=== PATIENT | male | born 1995 | race Caucasian/White ===

== ENCOUNTER 2020-04-06 15:13 | Emergency (ER) | payer OTHER, SELFPAY ==
--- NOTE | 2020-04-06 16:12 | ED.EYEPROB ---
HPI - Eye Problem General Chief complaint: Eye Problems Stated complaint: foreign body in left eye Time Seen by Provider: 04/06/20 16:12 Source: patient Mode of arrival: ambulatory Limitations: no limitations History of Present Illness HPI Narrative: Freedom Johnson is a 25 yo male with depression, GERD, comes to express care with complaints of left eye pain possibly related to foreign object from work Related Data Allergies Allergy/AdvReac Type Severity Reaction Status Date / Time No Known Allergies Allergy Unknown Verified 04/06/20 16:00 Review of Systems Review of Systems: Narrative: CONSTITUTIONAL: Denies fever, chills, sweats. EYES: Denies visual changes, has redness, has pain .discharge. ENT: Denies rhinorrhea, congestion, sore throat, otalgia. CARDIOVASCULAR: Denies chest pain, palpitations, edema. RESPIRATORY: Denies dyspnea, wheezing, cough GASTROINTESTINAL: Denies abdominal pain, nausea, vomiting, diarrhea. GENITOURINARY: Denies dysuria, hematuria, abnormal discharge SKIN: Denies rash or itching. NEUROLOGIC: Denies numbness, or focal weakness. PSYCHIATRIC: Denies anxiety or depression. [facility] Family History Family History Father Family history of cardiovascular disease Other Schizophrenia Social History Social History Smoking status: Former smoker Alcohol intake: current Gender identity (if verbalized by the patient): Male Comments At time of signature, I agree with nursing past medical, surgical, social and family history. There is no relevant family history pertinent to the presenting complaint. Exam Narrative: Exam Narrative: GENERAL: This is a well-nourished, well-developed patient, in mild distress. HEAD: normocephalic, atraumatic. EYES: Sclera injected on left vision is grossly in intact (tested 20/15) EARS: External ears normal, . Hearing grossly intact. NOSE: External nose normal without nasal discharge, nares without redness, no rhinorrhea. THROAT: Mucous membranes moist, NECK: Neck supple, CARDIOVASCULAR: Regular rate and rhythm without murmurs, gallops, or rubs. RESPIRATORY: Clear to auscultation. Breath sounds equal bilaterally. No wheezes, rales, or rhonchi. GASTROINTESTINAL: Abdomen soft, non-tender, SKIN: warm, intact with no suspicious lesions or rash, good texture and turgor. NEURO: awake, alert, and oriented to person, place and time. There were no obvious focal neurologic abnormalities. Steady gait EXTREMITIES: Normal range of motion. BACK: Nontender without deformity Procedures FB Removal Eye Foreign Body #1: Foreign Body Removal Date: 04/06/20 Foreign Body Removal Time: 16:28 Location: eye (L) Topical anesthetic used: proparacaine Foreign body: wood Evidence of corneal penetration: No Technique: irrigation Procedure performed under: direct visualization with magnification and slit-lamp Post-procedure medication: ophthalmic antibiotic and topical anesthetic Patient tolerated procedure: well Foreign Body Removal Narrative: Tolerated procedure well MDM - Eye Problem Differential Diagnosis Differential diagnosis: Likely corneal abrasion, conjunctivitis, corneal ulcer and other Discharge Plan Discharge Clinical Impression: Corneal abrasion Qualifiers: Encounter type: initial encounter Laterality: left Qualified Code(s): S05.02XA - Injury of conjunctiva and corneal abrasion without foreign body, left eye, initial encounter Patient Disposition: Home, Self-Care Condition: Stable Instructions: Antibiotic Form, Corneal Abrasion (DC) Additional Instructions: warm compresses 3x/day, drops 3x/day for 5 days wear sunglasses outside no contact lenses Prescriptions: New tobramycin 0.3 % drops 3 drop EACH EYE Q4H 10 Days Qty: 5 RF: 0 No Action pantoprazole [Protonix] 40 mg
== END 2020-04-06 16:39 | disposition home or self-care (01) ==
PROVIDERS: Emergency Provider Nurse Practitioner; PCP Family Medicine
DX: S05.02XA Injury of conjunctiva and corneal abrasion without foreign body, left eye, initial encounter (principal); Z87.891 Personal history of nicotine dependence; X58.XXXA Exposure to other specified factors, initial encounter
CPT/HCPCS: 99213; A9270; G0463

== ENCOUNTER 2020-08-11 17:38 | Emergency (ER) | payer OTHER, SELFPAY ==
--- NOTE | ~2020-08-11 | XR_ITS ---
EXAMINATION: XR chest 2V DATE: 08/11/2020 18:02 INDICATION: Right chest pain. Wheezing. TECHNIQUE: Frontal and lateral views of the chest were obtained. COMPARISON: Chest 2 views 05/01/2019, CT abdomen and pelvis 02/28/2019 FINDINGS: The chest demonstrates clear lungs without pneumonia, pleural effusion, or pneumothorax. Th e heart size is normal. IMPRESSION: 1. No acute cardiopulmonary disease. Reviewed, dictated and finalized at location A.
[2020-08-11 17:50] VITALS: BP 148/81; PULSE 78; RESP 20; TEMP 36.9; O2SAT 100
--- NOTE | 2020-08-11 17:51 | ED.URI ---
HPI - URI/Sore Throat General Chief Complaint: Upper Respiratory Infection Stated Complaint: right side chest pain Time Seen by Provider: 08/11/20 17:51 Source: patient and RN notes reviewed History of Present Illness HPI Narrative: Patient is a 25-year-old male who presents the urgent care with complaints of an audible wheeze in the morning with intermittent dry cough and episodes of shortness of breath. Patient states that he typically only notices the episodes of audible wheezing after waking up but is experiencing the shortness of breath intermittently throughout the day. States that he is short of breath even on non-exertion. Patient states the episodes have been occurring for approximately 1 month and he has been taking [id number] antihistamines without any improvement. Patient currently denies of any shortness of breath or chest pains. Patient does have a history of anxiety but states he does not relate the shortness of breath to any episodes of anxiety. No other acute complaints. No acute distress noted. Patient aware of the plan of care. Some parts of this dictation were generated by voice recognition software and may contain typographical and/or grammatical inaccuracies. Related Data Home Medications Medication Instructions Recorded Confirmed pantoprazole 40 mg PO DAILY 08/11/20 08/11/20 ustekinumab [Stelara] See Rx Instructions .ROUTE .COMPLEX 08/11/20 08/11/20 Allergies Allergy/AdvReac Type Severity Reaction Status Date / Time No Known Allergies Allergy Unknown Verified 04/06/20 16:00 Review of Systems Review of Systems: Narrative: CONSTITUTIONAL: Denies fever, chills, or sweats. EYES: Denies visual changes, redness, or discharge. ENT: Denies rhinorrhea, congestion, sore throat, or otalgia. CARDIOVASCULAR: Denies chest pain, palpitations, or edema. RESPIRATORY: Reports of intermittent cough and dyspnea with audible wheezes in the morning GASTROINTESTINAL: Denies abdominal pain, nausea, vomiting, or diarrhea. GENITOURINARY: Denies dysuria or hematuria. SKIN: Denies rash or itching. MUSCULOSKELETAL: Denies back pain, joint pain, or myalgia. NEUROLOGIC: Denies headache, numbness, or weakness. All other systems reviewed are negative, except as documented in HPI. [facility] Social History Social History Smoking status: Former smoker Alcohol intake: current Gender identity (if verbalized by the patient): Male Comments At the time of my signature, I reviewed and agree with the nursing past medical, surgical, social, and family history. There is no relevant family history pertinent to the patient complaint. Exam Narrative: Exam Narrative: GENERAL: This is a well-nourished, well-developed patient, in no apparent distress. HEAD: normocephalic, atraumatic. EYES: PERRL. Sclera clear/white. Vision is grossly intact. EARS: External ears normal NOSE: External nose normal with no obvious nasal discharge, nares without redness, no rhinorrhea. THROAT: Mucous membranes moist, posterior pharynx clear. NECK: Neck supple, non-tender without lymphadenopathy CARDIOVASCULAR: Regular rate and rhythm without murmurs, gallops, or rubs. RESPIRATORY: Clear to auscultation. Breath sounds equal bilaterally. No wheezes, rales, or rhonchi. SKIN: warm, intact with no suspicious lesions or rash, good texture and turgor. NEURO: awake, alert, and oriented to person, place and time. There were no obvious focal neurologic abnormalities. EXTREMITIES: No clubbing, cyanosis, or edema. Course Vital Signs Vital signs: Vital Signs Temperature 98.5 F 08/11/20 17:50 Pulse Rate 78 08/11/20 17:50 Respiratory Rate 08/11/20 17:50 Blood Pressure 148/81 H 08/11/20 17:50 Pulse Oximetry 100 08/11/20 17:50 Temperature 98.5 F 08/11/20 17:50 Pulse Rate 78 08/11/20 17:50 Respiratory Rate 08/11/20 17:50 Blood Pressure 148/81 H 08/11/20 17:50 Pulse Oximetry
== END 2020-08-11 18:16 | disposition home or self-care (01) ==
PROVIDERS: Emergency Provider Nurse Practitioner Family; PCP Family Medicine
DX: R07.89 Other chest pain (principal); Z87.891 Personal history of nicotine dependence
CPT/HCPCS: 71046; 99213; G0463

== ENCOUNTER 2020-09-08 14:32 | Emergency (ER) | payer OTHER, SELFPAY ==
[2020-09-08 14:41] VITALS: BP 154/65; PULSE 76; RESP 16; TEMP 36.7; O2SAT 99
--- NOTE | 2020-09-08 14:46 | ED.GENADULT ---
HPI - General Adult General Chief complaint: Anxiety Stated complaint: Something in throat Time Seen by Provider: 09/08/20 14:55 Source: patient Mode of arrival: ambulatory Limitations: no limitations History of Present Illness HPI narrative: 25-year-old male patient presents to the [facility] with complaints of a sensation that something is in the right side of his throat as well as feeling like there is something in his right lung. Patient states he has had this sensation now for about 2 months. Patient does have history of Crohn's disease and GERD and states he does see a GI doctor. Patient states he is supposed to be getting a scope done for this but has not yet scheduled it. Patient does admit to cocaine and alcohol use last night. Patient states he woke up this morning with a lot of anxiety of well what was going on in his throat and his wound and wanted to come get checked out. Denies any fevers, body aches or chills. Denies any chest pain or shortness of breath. Denies any abdominal pain, nausea, vomiting or diarrhea. Related Data Home Medications Medication Instructions Recorded Confirmed pantoprazole 40 mg PO DAILY 08/11/20 08/11/20 ustekinumab [Stelara] See Rx Instructions .ROUTE .COMPLEX 08/11/20 08/11/20 aripiprazole mg 09/08/20 fluoxetine mg 09/08/20 Allergies Allergy/AdvReac Type Severity Reaction Status Date / Time No Known Allergies Allergy Unknown Verified 04/06/20 16:00 Review of Systems Review of Systems: Narrative: CONSTITUTIONAL: Denies fever, chills, or sweats. EYES: Denies visual changes, redness, or discharge. ENT: Denies rhinorrhea, congestion, sore throat, or otalgia. Positive sensation of foreign body in throat x2 months CARDIOVASCULAR: Denies chest pain, palpitations, or edema. RESPIRATORY: Denies cough or dyspnea. Positive sensation of something into the right lung x2 months GASTROINTESTINAL: Denies abdominal pain, nausea, vomiting, or diarrhea. GENITOURINARY: Denies dysuria or hematuria. SKIN: Denies rash or itching. MUSCULOSKELETAL: Denies back pain, joint pain, or myalgia. NEUROLOGIC: Denies headache, numbness, or weakness. PSYCHIATRIC: Positive anxiety, denies depression. Positive polysubstance abuse last night [facility] Past Medical History Medical History (Updated 09/08/20 @ 15:27 by NEW Balderrama) Alcohol abuse Bipolar affective disorder, current episode depressed Cocaine use disorder Crohn's disease Family history of paranoid schizophrenia GERD (gastroesophageal reflux disease) Polysubstance abuse Secondary hypertension Severe depression Family History Family History Father Family history of cardiovascular disease Other Schizophrenia Social History Social History Smoking status: Former smoker Alcohol intake: current Gender identity (if verbalized by the patient): Male Comments At the time of my signature I agree with nursing past medical history, surgical, social, and family history. There is no relevant family history pertinent to the presenting complaint. Exam Narrative: Exam Narrative: GENERAL: Well-appearing, well-nourished, and in no acute distress. HEAD: Normocephalic, atraumatic. EYES: PERRLA and EOMI. ENT: Nares clear, no rhinorrhea or epistaxis. Mucous membranes moist. Bilateral TMs are clear no erythema or foreign bodies to the canal. Posterior pharynx with no erythema, tonsillectomy, exudates or lesions present. No foreign bodies noted to the posterior pharynx. NECK: Supple. No lymphadenopathy CHEST: Clear to auscultation. No respiratory distress. Patient able talk clear complete sentences. No tripoding noted. HEART: Irregular rate slightly noted on auscultation. No murmur heard. Normal peripheral pulses. ABDOMEN: Soft, nontender, nondistended, normal active bowel sounds. EXTREMITIES: Normal range of motion. No edema. SKIN: W
[2020-09-08] MEDS: ASPIRIN 81 MG CHEWABLE TABLET 324 MG PO (15:13)
--- NOTE | 2020-09-08 15:14 | PC.NURSE ---
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
--- NOTE | 2020-09-08 15:14 | PC.NURSE ---
1512 asa and iv ordered. sindi rn in to do iv, asa, monitor and oz.
--- NOTE | 2020-09-08 15:21 | PC.NURSE ---
ems here for transfer.
--- NOTE | 2020-09-08 15:23 | ECG_ITS ---
Measurements Intervals [place] Rate: 63 P: 71 [place]: 148 QRS: 66 QRSD: 97 T: 44 QT: 379 QTc: 389 Interpretive Statements SINUS RHYTHM WITH SINUS ARRHYTHMIA POSSIBLE LEFT ATRIAL ENLARGEMENT INCOMPLETE RIGHT BUNDLE BRANCH BLOCK BORDERLINE ECG Electronically Signed On 09-08-2020 18:15:25 CDT by José Luis Sanchez D.O.
[2020-09-08 15:35] VITALS: BP 154/65; PULSE 76; RESP 16; TEMP 36.7; O2SAT 99
== END 2020-09-08 15:25 | disposition short-term general hospital (02) ==
PROVIDERS: Emergency Provider Nurse Practitioner Family; PCP Family Medicine
DX: R07.89 Other chest pain (principal); F14.10 Cocaine abuse, uncomplicated; Z87.891 Personal history of nicotine dependence; K50.90 Crohn's disease, unspecified, without complications; K21.9 Gastro-esophageal reflux disease without esophagitis; F32.9 Major depressive disorder, single episode, unspecified
CPT/HCPCS: 93005; 99215; A9270; G0463

== ENCOUNTER 2020-09-08 15:45 | Emergency (ER) | payer OTHER, SELFPAY ==
[2020-09-08] VITALS (13 sets, daily range): BP systolic 137–158; BP diastolic 61–79; PULSE 66–83; RESP 14–20; TEMP 37.2; O2SAT 98–100
--- NOTE | ~2020-09-08 | XR_ITS ---
XR chest 2V DATE: 09/08/2020 16:12 INDICATION: Shortness of breath. Drug use. Tingling of head, arms. Family history of heart disease. TECHNIQUE: PA and lateral views COMPARISON: 08/11/2020 2 view chest FINDINGS: Normal heart size. No hilar or mediastinal enlargement. No pulmonary infiltrate or consolid ation, pleural effusion or pulmonary vascular congestion or pneumothorax. IMPRESSION: Negative Reviewed, dictated and finalized at location A. IMPRESSION: Negative
--- NOTE | 2020-09-08 15:45 | ECG_ITS ---
Measurements Intervals [place] Rate: 68 P: 74 [place]: 139 QRS: 44 QRSD: 102 T: 27 QT: 372 QTc: 397 Interpretive Statements SINUS RHYTHM WITH SINUS ARRHYTHMIA POSSIBLE LEFT ATRIAL ENLARGEMENT INCOMPLETE RIGHT BUNDLE BRANCH BLOCK BORDERLINE ECG Electronically Signed On 09-08-2020 18:17:11 CDT by José Luis Sanchez D.O.
--- NOTE | 2020-09-08 15:55 | ED.CHESTPAIN ---
HPI - Chest Pain General Chief Complaint: Chest Pain Stated Complaint: CP, drug use Time Seen by Provider: 09/08/20 15:48 Source: patient Mode of arrival: EMS Limitations: no limitations History of Present Illness HPI narrative: This is a 25 year old male that presents to the ER for episode of anxiety today. Reports he felt short of breath and like there was something in his throat. Also reports some right sided chest discomfort. Reports he thought he was going to . Does have history of anxiety, but does not take anything for it. Symptoms have now resolved. Patient currently has no complaints. Denies fever, chest pain, or shortness of breath. Related Data Home Medications Medication Instructions Recorded Confirmed ustekinumab [Stelara] See Rx Instructions .ROUTE .COMPLEX 08/11/20 08/11/20 aripiprazole mg 09/08/20 Allergies Allergy/AdvReac Type Severity Reaction Status Date / Time No Known Allergies Allergy Unknown Verified 04/06/20 16:00 Review of Systems Review of Systems: Narrative: CONSTITUTIONAL: Denies fever CARDIOVASCULAR: Denies current chest pain, palpitations, or edema. RESPIRATORY: Denies dyspnea. All systems reviewed & are unremarkable except as noted in HPI and below PMFSH Past Medical History Medical History (Updated 09/08/20 @ 16:51 by Bettie Elam PA-C) Alcohol abuse Bipolar affective disorder, current episode depressed Cocaine use disorder Crohn's disease Family history of paranoid schizophrenia GERD (gastroesophageal reflux disease) Polysubstance abuse Secondary hypertension Severe depression Family History Family History Father Family history of cardiovascular disease Other Schizophrenia Social History Social History (Updated 09/08/20 @ 16:05 by Bettie Elam PA-C) Smoking status: Former smoker Alcohol intake: current Substance use: current Substance use type: crack/cocaine Gender identity (if verbalized by the patient): Male Exam Narrative: Exam Narrative: GENERAL: Well-appearing, well-nourished, and in no acute distress. HEAD: Normocephalic, atraumatic. EYES: EOMI. ENT: Nares clear, no rhinorrhea or epistaxis. Mucous membranes moist. Oropharynx without tonsillar hypertrophy exudate or other lesions. Bilateral TMs pearly drew non-bulging NECK: Supple. No adenopathy or masses. CHEST: Clear to auscultation. No respiratory distress. No wheezes rales or rhonchi HEART: Regular rate and rhythm. No murmur heard. Normal peripheral pulses. EXTREMITIES: Normal range of motion. No edema. SKIN: Warm, dry, no rash. NEURO: No focal deficits. Alert and oriented x3. PSYCH: Normal mood and affect Course Vital Signs Vital signs: Vital Signs Temperature 98.9 F 09/08/20 15:47 Pulse Rate 76 09/08/20 15:47 Respiratory Rate 18 09/08/20 15:47 Pulse Oximetry 100 09/08/20 15:47 Temperature 98.9 F 09/08/20 15:47 Pulse Rate 70 09/08/20 16:17 Respiratory Rate 18 09/08/20 16:17 Blood Pressure 151/61 H 09/08/20 16:16 Pulse Oximetry 99 09/08/20 16:17 MDM - Chest Pain MDM Narrative Medical decision making narrative: This is a 25 year old male that presents to the ER for an episode of anxiety today. Was no longer having any symptoms when he arrived to the ED. His vitals are normal. CBC and metabolic panel without concerning findings. Baseline troponin is negative. No concerning changes on EKG. Chest x-ray is clear. PERC criteria negative. Patient updated on case findings. He is stable and felt appropriate for further outpatient evaluation. He was given warnings to return to the ER Lab Data Attestation: I reviewed the patient's lab results. Result diagrams: 09/08/20 16:09/08/20 16:01 Labs: Lab Results 09/08/20 09/08/20 09/08/20 Range/Units 16:01 16:01 16:01 WBC 5.9 (4.5-10.0) K/mm3 RBC 4.82 (4.6-6.20) M/mm3 Hgb 14.4 (14.0-18.0)
[2020-09-08 16:06] LABS: Basophils Percent Auto 0.3 % (0.2-1.2); Eosinophils Absolute Auto 0.2 K/mm3 (0-0.3); Eosinophils Percent Auto 3.4 % (0-4.4); Hematocrit 42.4 % (42.0-52.0); Hemoglobin 14.4 g/dL (14.0-18.0); Immature Granulocyte Absolute 0.01 K/mm3 (0.00-0.031); Immature Granulocyte Percent A 0.2 % (0-0.5); Lymphocytes Absolute Auto 1.04 K/mm3 (0.9-3.2); Lymphocytes Percent Auto 17.7 % (18.3-44.2); Mean Corpuscular Hemoglobin 29.9 pg (26-34); Mean Platelet Volume 11.4 fl (7.4-10.4); Monocytes Absolute Auto 0.5 K/mm3 (0.1-0.6); Monocytes Percent Auto 7.7 % (2.6-8.5); Neutrophils Absolute Auto 4.2 K/mm3 (1.3-6.7); Neutrophils Percent Auto 70.7 % (45.5-73.1); Platelet Count Result 208 k/mm3 (150-375); Red Blood Count 4.82 M/mm3 (4.6-6.20); Red Cell Distribution Width 12.7 % (11.5-14.5); White Blood Count 5.9 K/mm3 (4.5-10.0)
[2020-09-08 16:16] LABS: Partial Thromboplastin Time 25.5 SECONDS (22.3-36.8); Prothrombin Time 12.6 Seconds (11.1-14.7)
[2020-09-08 16:17] LABS: Anion Gap 10 mmol/L (8-16); Blood Urea Nitrogen 12 mg/dL (9-20); Calcium 9.7 mg/dL (8.4-10.2); Carbon Dioxide 28 mmol/L (22-30); Chloride 105 mmol/L (98-107); Estimated CRCL calculation 112 ml/min; Estimated Glomerular Filt Rate > 60; Glucose 106 mg/dL (75-110); Potassium 4.1 mmol/L (3.4-5.0); Sodium 143 mmol/L (137-145)
[2020-09-08 16:29] LABS: Troponin I < 0.012 ng/mL (0.000-0.034)
== END 2020-09-08 17:05 | disposition home or self-care (01) ==
PROVIDERS: General Practice; Emergency Provider Emergency Medicine; PCP Family Medicine
DX: R07.89 Other chest pain (principal); F14.10 Cocaine abuse, uncomplicated; F31.9 Bipolar disorder, unspecified; K50.90 Crohn's disease, unspecified, without complications; K21.9 Gastro-esophageal reflux disease without esophagitis; I15.9 Secondary hypertension, unspecified; Z87.891 Personal history of nicotine dependence; I45.10 Unspecified right bundle-branch block; R94.31 Abnormal electrocardiogram [ECG] [EKG]
CPT/HCPCS: 36415; 71046; 80048; 84484; 85025; 85610; 85730; 93005; 99284

== ENCOUNTER 2022-04-14 16:00 | Emergency (ER) | payer OTHER, SELFPAY ==
[2022-04-14 16:16] VITALS: BP 148/72; PULSE 89; RESP 16; TEMP 37.8; O2SAT 100
--- NOTE | 2022-04-14 16:16 | ED.EAR ---
HPI - Ear Problem General Chief complaint: Ear Stated complaint: Sore throat,Ear Pain Time Seen by Provider: 04/14/22 16:16 Source: patient and RN notes reviewed Mode of arrival: ambulatory Limitations: no limitations History of Present Illness HPI Narrative: 27-year-old male presents to the [facility] with complaints of a sore throat and bilateral ear pain since yesterday. No treatment prior to arrival. Denies fevers. No nausea vomiting or diarrhea. No headaches. MD Complaint: ear pain (bilateral ) Related Data Allergies Allergy/AdvReac Type Severity Reaction Status Date / Time No Known Allergies Allergy Unknown Verified 04/14/22 16:01 Review of Systems Review of Systems: All systems reviewed & are unremarkable except as noted in HPI and below Constitutional: Constitutional: Reports no additional constitutional complaints, Denies chills and Denies fever(s) Eyes: Eyes: Reports no additional eye complaints ENT: Reports as per HPI, Denies change in voice, Denies dental pain, Denies vertigo, Denies dizziness and Denies throat swelling Comments: Ear pain, throat pain Cardiovascular: Cardiovascular: Reports no additional cardiovascular complaints, Denies chest pain and Denies dyspnea Respiratory: Respiratory: Reports no additional respiratory complaints, Denies cough and Denies dyspnea Gastrointestinal: Gastrointestinal: Reports no additional gastrointestinal complaints, Denies abdominal pain, Denies nausea and Denies vomiting Musculoskeletal: Musculoskeletal: Reports no additional musculoskeletal complaints Integumentary/Breasts: Skin/Breast: Reports system reviewed and no additional complaints, except as docu Neurologic: Reports system reviewed and no additional complaints, except as documented, Denies vertigo and Denies dizziness Psychiatric: Psychiatric: Reports no additional psychiatric complaints Allergic/Immunologic: Allergic/Immunologic: Reports no additional allergic/immunologic complaints and Denies throat swelling [facility] Past Medical History Medical History Alcohol abuse Bipolar affective disorder, current episode depressed Cocaine use disorder Crohn's disease Family history of paranoid schizophrenia GERD (gastroesophageal reflux disease) Polysubstance abuse Secondary hypertension Severe depression Family History Family History Father Family history of cardiovascular disease Other Schizophrenia Social History Social History Smoking status: Current every day smoker Alcohol intake: current Substance use: current Substance use type: crack/cocaine Gender identity (if verbalized by the patient): Male Comments At the time of my signature, I reviewed and agree with the nursing past medical, surgical, social, and family history. There is no relevant family history pertinent to the patient complaint. Exam Const: General: healthy appearing and no acute distress Nutritional Appearance: well nourished Orientation/consciousness: patient oriented x3 Limitations: no limitations HENMT: Head: normal to inspection Ears: external ears normal, EAC's normal and TM abnormal bulging bilateral and with fluid behind the TM (Clear) bilateral; not erythematous and with no loss of landmarks General nose exam: Normal external nose present and Normal nasal mucous membranes and turbinates present Face and sinus: normal facial exam Mouth: Yes Normal oral and palatal mucosa present Throat: tonsils normal, uvula midline, postnasal drainage and no uvular edema Eyes: Conjunctivae: conjunctivae normal Pupils: Equal, round and reactive pupils present Neck: Neck: normal visual inspection, no lymphadenopathy and no meningeal signs Chest: Chest palpation & inspection: normal inspection of the chest Resp: Effort & Inspection: normal respiratory effort and
== END 2022-04-14 16:40 | disposition home or self-care (01) ==
PROVIDERS: Emergency Provider Nurse Practitioner; PCP Family Medicine
DX: H65.03 Acute serous otitis media, bilateral (principal); R09.82 Postnasal drip; F17.200 Nicotine dependence, unspecified, uncomplicated; K50.90 Crohn's disease, unspecified, without complications; K21.9 Gastro-esophageal reflux disease without esophagitis
CPT/HCPCS: 87081; 87804; 87880; 99213; G0463

== ENCOUNTER 2023-10-24 22:17 | Emergency (ER) | payer OTHER, SELFPAY ==
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
[2023-10-24 22:19] VITALS: PULSE 112; RESP 20; TEMP 36.4; O2SAT 98
--- NOTE | 2023-10-24 22:35 | PC.NURSE ---
This RN in room doing assessment and patient is being inappropriate. Patient stating wow, your gorgeous. What's your name? This RN informed patient that I was Cat, and his nurse. Patient then states your just so hot. What's your middle name? What's your birthday? This RN informed patient that I cannot give that information out. Patient states well yes you do. I want to know, your so hot and I want to know. This RN informed him that he is being inappropriate and that I will not give that information out. Patient states you have to give that out. This RN reinformed patient that I will not give that information out and that him being inappropriate will not be allowed. Patient stated he understood. Patient is intoxicated. Patient on bed alarm for intoxication. ERP and laborer [employer] notified of patient being inappropriate.
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
[2023-10-24 23:24] LABS: Basophils Percent Auto 0.4 % (0.2-1.2); Eosinophils Percent Auto 0.6 % (0-4.4); Hematocrit 45.5 % (42.0-52.0); Hemoglobin 15.4 g/dL (14.0-18.0); Lymphocytes Absolute Auto 1.15 K/mm3 (0.9-3.2); Mean Corpuscular HGB Conc 33.8 g/dl (32-36); Mean Corpuscular Hemoglobin 29.9 pg (26-34); Mean Corpuscular Volume 88.3 fl (80-100); Mean Platelet Volume 11.1 fl (7.4-10.4); Monocytes Absolute Auto 0.2 K/mm3 (0.1-0.6); Monocytes Percent Auto 4.4 % (2.6-8.5); Neutrophils Absolute Auto 3.6 K/mm3 (1.3-6.7); Neutrophils Percent Auto 71.6 % (45.5-73.1); Platelet Count Result 196 k/mm3 (150-375); Red Blood Count 5.15 M/mm3 (4.6-6.20); Red Cell Distribution Width 13.2 % (11.5-14.5)
[2023-10-24 23:39] LABS: Ethanol 284 mg/dL (<10)
[2023-10-24 23:40] LABS: Alanine Aminotransferase 28 U/L (6-50); Albumin Level 5.1 g/dL (3.5-5.1); Alkaline Phosphatase 59 U/L (38-126); Anion Gap 15 mmol/L (8-16); Aspartate Amino Transferase 32 U/L (17-59); Bilirubin,Total 0.5 mg/dL (0.2-1.3); Blood Urea Nitrogen 5 mg/dL (9-20); Calcium 9.2 mg/dL (8.4-10.2); Carbon Dioxide 27 mmol/L (22-30); Chloride 104 mmol/L (98-107); Estimated CRCL calculation 126 ml/min; Estimated Glomerular Filt Rate > 60; Glucose 113 mg/dL (65-110); Potassium 3.7 mmol/L (3.4-5.0); Sodium 146 mmol/L (137-145)
--- NOTE | 2023-10-25 00:28 | PC.NURSE ---
Patients mother arrives at bedside.
== END 2023-10-25 00:40 | disposition home or self-care (01) ==
PROVIDERS: Emergency Provider Physician Assistant; PCP Family Medicine
DX: S01.81XA Laceration without foreign body of other part of head, initial encounter (principal); S02.2XXA Fracture of nasal bones, initial encounter for closed fracture; K50.90 Crohn's disease, unspecified, without complications; K21.9 Gastro-esophageal reflux disease without esophagitis; I15.9 Secondary hypertension, unspecified; F31.9 Bipolar disorder, unspecified; F17.210 Nicotine dependence, cigarettes, uncomplicated; Z79.899 Other long term (current) drug therapy; Y04.0XXA Assault by unarmed brawl or fight, initial encounter
CPT/HCPCS: 12002; 36415; 70450; 70486; 80053; 80307; 85025; 99284